=== PATIENT | female | born 1975 | race Caucasian/White ===

== ENCOUNTER → 2016-11-12 | Outpatient (REF) | LOC: WSOH 15:13 | DX: Z02.89 Encounter for other administrative examinations (principal) ==

== ENCOUNTER → 2017-02-23 | Outpatient (REF) | LOC: WSOH 08:00 → WSPT 08:45 | DX: Z02.1 Encounter for pre-employment examination (principal) ==

== ENCOUNTER → 2017-02-25 | Outpatient (REF) | LOC: WSOH 16:00 | DX: Z02.89 Encounter for other administrative examinations (principal) ==

== ENCOUNTER → 2017-05-10 | Outpatient (REF) | LOC: WSOH 14:15 | DX: Z02.89 Encounter for other administrative examinations (principal) ==

== ENCOUNTER → 2018-04-27 | Outpatient (CLI) | payer BC | LOC: MC.RAD 13:38 | DX: R92.8 Other abnormal and inconclusive findings on diagnostic imaging of breast (principal); Z98.890 Other specified postprocedural states ==